=== PATIENT | female | born 1945 | race Caucasian/White ===

== ENCOUNTER 2022-11-08 11:48 | Emergency (ER) | payer OTHER ==
[~2022-11-08] VITALS: Ht 147.3 cm; Wt 75.7 kg
[2022-11-08 12:06] VITALS: BP 163/89
--- NOTE | 2022-11-08 12:16 | NUR ---
AMBULATED TO BED 3
[2022-11-08 13:35] LABS: BASOPHILS # (AUTO) 0.1 K/uL (0.00-0.22); BASOPHILS % (AUTO) 0.9 % (0.0-2.0); EOSINOPHILS # (AUTO) 0.1 K/uL (0-0.4); HEMATOCRIT 42.8 % (36-48); HEMOGLOBIN 14.2 g/dL (12.0-16.0); LYMPHOCYTES # (AUTO) 2.2 K/uL (2.5-16.5); LYMPHOCYTES % (AUTO) 32.8 % (20.5-51.1); MEAN CORPUSCULAR HEMOGLOBIN 29 pg (27-31); MEAN CORPUSCULAR HGB CONC 33 g/dL (33-37); MEAN CORPUSCULAR VOLUME 87.1 fL (80-94); MONOCYTES # (AUTO) 0.5 K/uL (0.8-1.0); MONOCYTES % (AUTO) 7.9 % (1.7-9.3); NEUTROPHILS # (AUTO) 3.8 K/uL (1.8-7.7); NEUTROPHILS % (AUTO) 56.4 % (42.2-75.2); PLATELET COUNT (AUTO) 187 K/uL (140-450); RED BLOOD CELL COUNT(AUTO) 4.91 MIL/uL (4.20-5.40); RED CELL DISTRIBUTION WIDTH 13.9 % (11.6-13.7); WHITE BLOOD COUNT (AUTO) 6.7 K/uL (4.8-10.8)
[2022-11-08 13:43] LABS: PROTHROMBIN TIME 9.7 secs (10.8-13.4)
[2022-11-08 13:48] LABS: ALBUMIN 3.3 g/dL (3.4-5.0); ANION GAP 13.2 (8-16); ASPARTATE AMINOTRANSFERASE 15 U/L (15-37); CARBON DIOXIDE 26.6 mmol/L (21-32); CHLORIDE 105 mmol/L (98-107); GLUCOSE 127 mg/dL (74-106); POTASSIUM 3.8 mmol/L (3.5-5.1); SODIUM SERUM 141 mmol/L (136-145); TOTAL BILIRUBIN 0.3 mg/dL (0.0-1.0); UREA NITROGEN, BLOOD 13 mg/dL (7-18)
[2022-11-08] MEDS ORDERED: MELA3TER PO (14:55)
[2022-11-08 15:44] VITALS: BP 136/68
== END 2022-11-08 15:48 | disposition home or self-care (01) ==
LOC: MED 11:48
DX: R55 Syncope and collapse (principal); G47.00 Insomnia, unspecified; E11.9 Type 2 diabetes mellitus without complications; I10 Essential (primary) hypertension; K21.9 Gastro-esophageal reflux disease without esophagitis; Z79.4 Long term (current) use of insulin; Z79.899 Other long term (current) drug therapy; Z88.0 Allergy status to penicillin; Z85.3 Personal history of malignant neoplasm of breast
CPT/HCPCS: 36415; 70450; 71045; 72125; 80053; 83880; 84484; 85025; 85610; 85730; 93005; 99285; Q0092

== ENCOUNTER 2023-09-23 05:55 | Emergency (ER) | payer OTHER ==
[~2023-09-23] VITALS: Ht 152.4 cm; Wt 76.2 kg
[~2023-09-23 05:55] MED LIST: MELA3TER PO
[2023-09-23 06:00] VITALS: BP 171/86; PULSE 89; RESP 18; TEMP 97.8; O2SAT 96
[2023-09-23] MEDS ORDERED: ONDANSETRON 4 MG ODT PO ONE (06:15)
[2023-09-23] MEDS ORDERED: ONDANSETRON 4 MG/2 ML VIAL IVP ONE (06:40)
[2023-09-23] MEDS ORDERED: NACL 0.9% 1,000 ML IV ONE (06:40)
[2023-09-23] MEDS ORDERED: LABETALOL 20 MG/4 ML VIAL IVP ONE (06:50)
[2023-09-23 06:54] LABS: BASOPHILS % (AUTO) 0.5 % (0.0-2.0); EOSINOPHILS # (AUTO) 0.2 K/uL (0-0.4); EOSINOPHILS % (AUTO) 4.1 % (0.0-4.0); HEMATOCRIT 35.4 % (36-48); HEMOGLOBIN 11.2 g/dL (12.0-16.0); LYMPHOCYTES # (AUTO) 2.1 K/uL (2.5-16.5); LYMPHOCYTES % (AUTO) 35.8 % (20.5-51.1); MEAN CORPUSCULAR HEMOGLOBIN 25 pg (27-31); MEAN CORPUSCULAR HGB CONC 32 g/dL (33-37); MEAN CORPUSCULAR VOLUME 77.7 fL (80-94); MONOCYTES # (AUTO) 0.3 K/uL (0.8-1.0); MONOCYTES % (AUTO) 5.8 % (1.7-9.3); NEUTROPHILS # (AUTO) 3.1 K/uL (1.8-7.7); NEUTROPHILS % (AUTO) 53.8 % (42.2-75.2); PLATELET COUNT (AUTO) 199 K/uL (140-450); RED BLOOD CELL COUNT(AUTO) 4.56 MIL/uL (4.20-5.40); WHITE BLOOD COUNT (AUTO) 5.8 K/uL (4.8-10.8)
[2023-09-23 07:08] LABS: ALANINE AMINOTRANSFERASE 17 U/L (12-78); ALBUMIN 3.6 g/dL (3.4-5.0); ALKALINE PHOSPHATASE 146 U/L (50-136); ANION GAP 12.1 (8-16); ASPARTATE AMINOTRANSFERASE 9 U/L (15-37); CALCIUM 8.9 mg/dL (8.5-10.1); CARBON DIOXIDE 24.8 mmol/L (21-32); CHLORIDE 103 mmol/L (98-107); CREATININE 0.9 mg/dL (0.6-1.3); GLUCOSE 181 mg/dL (74-106); POTASSIUM 3.9 mmol/L (3.5-5.1); SODIUM SERUM 136 mmol/L (136-145); TOTAL BILIRUBIN 0.4 mg/dL (0.0-1.0); TOTAL PROTEIN, SERUM 7.8 g/dL (6.4-8.2); UREA NITROGEN, BLOOD 18 mg/dL (7-18)
[2023-09-23 07:14] LABS: LIPASE 28 U/L (16-77)
[2023-09-23] MEDS ORDERED: DIAZEPAM PFS 10 MG/2 ML SYR IVP ONE (07:35)
[2023-09-23 07:50] VITALS: O2SAT 99
[2023-09-23 09:11] LABS: APPEARANCE,URINE CLEAR (CLEAR); BILIRUBIN,URINE NEGATIVE (NEGATIVE); BLOOD, URINE NEGATIVE (NEGATIVE); COLOR,URINE YELLOW (YELLOW); LEUKOCYTE ESTERASE ,URINE TRACE (NEGATIVE); NITRITE, URINE NEGATIVE (NEGATIVE); PROTEIN,URINE NEGATIVE (NEGATIVE); UGLUCOSE NEGATIVE (NEGATIVE); UROBILINOGEN,URINE 0.2 EU/dL (0.2 - 1)
[2023-09-23 09:21] LABS: BACTERIA,URINE FEW /HPF (None Seen); RBC,URINE 0-5 /HPF (0-5); SQUAMOUS EPITHELIAL CELL,UR 0-3 (FEW) /LPF (0-3 (FEW)); WBC,URINE 0-5 /HPF (0-5)
[2023-09-23] MEDS ORDERED: MECL-303 PO (09:39)
[2023-09-23] MEDS ORDERED: ONDA-188 SL (09:39)
[2023-09-23 09:48] VITALS: BP 155/66; PULSE 79; RESP 18; TEMP 98.5; O2SAT 99
[2023-09-23] MEDS ORDERED: MECLIZINE 25 MG TAB PO ONE (10:00)
== END 2023-09-23 09:48 | disposition home or self-care (01) ==
LOC: MED 05:55
DX: R42 Dizziness and giddiness (principal); E11.9 Type 2 diabetes mellitus without complications; K21.9 Gastro-esophageal reflux disease without esophagitis; I10 Essential (primary) hypertension; Z88.0 Allergy status to penicillin; Z79.4 Long term (current) use of insulin; Z79.899 Other long term (current) drug therapy
CPT/HCPCS: 36415; 70450; 71045; 74022; 74176; 80053; 81001; 83605; 83690; 83880; 84484; 85025; 87040; 93005; 96361; 96374; 96375; 99285; J2405; J3360; J3490; J7030; J8597; Q0162